=== PATIENT | male | born 1980 | race Caucasian/White ===

== ENCOUNTER → 2017-06-16 | Outpatient (CLI) | payer BC ==
[~2017-06-16] MED LIST: ATV/1 PO; CHOL20009 PO; CRDCD/180 PO; EZET10TA63 PO; OXYC1TAB PO; OXYSR10 PO; PANT40TA PO
--- NOTE | 2017-06-16 11:33 | DIAGNOSTIC IMAGING REPORT ---
L-SPINE MIN 4 VIEWS ROUTINE HISTORY: Pain pump placement SPINAL CORD STIM DYSFUNCTION COMPARISON: None. FINDINGS: Postoperative changes including screw fixation of the L5-S1 complex. Bilateral stimulator, pain pump placement with the 2 electrodes at the inferior T8 level of the thoracic spine. Leads appear to be intact. No subluxation. Disc spaces are preserved. IMPRESSION: Lead position superiorly at the inferior endplate of T8 level. The above report was generated using voice recognition software. It may contain grammatical, syntax or spelling errors. Electronically signed by: Jeffrey Shaffer M.D. 06/16/2017 11:32 AM Dictated Date/Time: 06/16/2017 11:28 AM
== END | disposition home or self-care (01) ==
LOC: C.RADBC 11:01
PROVIDERS: ATTEND Anesthesiology
DX: T85.192A Other mechanical complication of implanted electronic neurostimulator of spinal cord electrode (lead), initial encounter (principal); X58.XXXA Exposure to other specified factors, initial encounter